=== PATIENT | female | born 1950 | race Caucasian/White ===

== ENCOUNTER 2016-11-08 14:04 | Inpatient (IN) | payer OTHER, MEDICARE ==
[~2016-11-08] VITALS: Ht 162.6 cm; Wt 84.3 kg
[2016-11-09] MEDS ORDERED: METF500T PO (08:23)
[2016-11-09] MEDS ORDERED: PRAV40TA2 PO (08:23)
[2016-11-09] MEDS ORDERED: PARO1TAB72 PO (08:23)
[2016-11-09] MEDS ORDERED: ZOLP10TA3 PO (08:23)
[2016-11-09] MEDS ORDERED: MELO-1 PO (08:23)
[2016-11-09] MEDS ORDERED: OMEP20TA PO (08:23)
--- NOTE | 2016-11-14 19:01 | MH ---
cc: WILMER ROCHA M.D. DATE OF ADMISSION: 11/15/2016 ADMISSION DIAGNOSIS Osteoarthritis of the right knee. HISTORY This patient is a 66-year-old female with significant knee pain related to osteoarthritis. The patient has longstanding treatment of her knees related to osteoarthritis. She has had Monovisc injection and cortisone injections. She has had IC ointments, [id number] medications, antiinflammatory medications and [place] as needed for pain. Her pain has become progressively worse and she is now presenting for surgical treatment. PAST MEDICAL HISTORY, SOCIAL HISTORY, FAMILY HISTORY, REVIEW OF SYSTEMS: See attached notes. PHYSICAL EXAMINATION 5'5", 182 pounds, BMI of 30.4. VITAL SIGNS: Blood pressure 120/62. HEENT: Normocephalic, atraumatic. Pupils equal, round, reactive to light and accommodation. Extraocular motion intact. NECK: Neck is supple. CHEST: Chest is clear. HEART: Regular, rate and rhythm. ABDOMEN: Soft, nontender, normoactive bowel sounds. MUSCULOSKELETAL EXAMINATION: Right knee: There is an effusion, crepitus with range of motion, pain with range of motion. Flexion limited to 120 degrees. Mild deformity. Medial and lateral joint line discomfort. IMAGING X-ray showed evidence of extensive arthritis of the right knee. IMPRESSION Osteoarthritis of the right knee. PLAN Right total knee replacement arthroplasty. CONSENT There are risks of surgery including infection, bleeding, loss of motion, continued pain, need for further surgery, neurologic and vascular injury. The patient understands these issues and wishes to press on with surgery as outlined above. MD CR Tyler/NICKI /6:27 PM /6:47 PM
[2016-11-15] MEDS ORDERED: POVIDONE IODINE 5% (ANTISEPSIS KIT) 4 APPLICATIONS EACH NARE PRN (07:00)
[2016-11-15] MEDS ORDERED: INSULIN HUMAN REGULAR 1,000 UNITS/10 ML VIAL SQ PRN (07:00)
[2016-11-15] MEDS ORDERED: VANCOMYCIN 1000 MG/NS 250 ML (for <70 kg) IV SCH ×2 (07:00)
[2016-11-15] MEDS ORDERED: CHLORHEXIDINE GLUCONATE 2 % 1 PACK (2 CLOTHS) TOPICAL PRN (07:00)
[2016-11-15] MEDS ORDERED: METOPROLOL TARTRATE 25 MG TAB PO PRN (07:00)
[2016-11-15] MEDS ORDERED: POVIDONE IODINE 7.5% SCRUB 118 ML BOTTLE TOPICAL SCH (07:00)
[2016-11-15] MEDS ORDERED: SODIUM CHLORID 0.9% 500 ML IV PRN (07:00)
[2016-11-15] MEDS ORDERED: LACTATED RINGER'S 1000 ML IV PRN (07:00)
[2016-11-15] MEDS ORDERED: ceFAZolin 2 GM PREMIX 50 ML IV SCH (07:00)
[2016-11-15] MEDS ORDERED: GENTAMICIN SULFATE 80 MG/2 ML VIAL ONE (07:01)
[2016-11-15 07:02] VITALS: BP 103/69; PULSE 62; RESP 16; TEMP 97.6; O2SAT 97
[2016-11-15] MEDS ORDERED: BUPIVACAINE HCL PF 0.5% 30 ML VIAL NERV BLOCK ONE (07:19)
[2016-11-15] MEDS ORDERED: BUPIVACAINE LIPOSOME PF 1.3% 20 ML VIAL ONE (07:20)
[2016-11-15] MEDS ORDERED: WALKER WHEELS/F1 MIS (07:44)
[2016-11-15] MEDS ORDERED: CPMMACHINE (07:45)
[2016-11-15] MEDS ORDERED: COMMODE 3-IN-11 MIS (07:45)
--- NOTE | 2016-11-15 07:47 | HHI.FF ---
Face to Face Verification Diagnosis: (1) Osteoarthritis of right knee (2) Right knee pain Physical Therapy Gait training, Safety evaluation, Transfer training, bed to chair Knee: Total knee, Protocol: Right, Full weight bearing Canvas Knee Splint: When in bed & 2 pillows btw thighs Right LE Weight Bearing: WB as tolerated Additional Instructions PT 4 days/wk for 2 weeks. WBAT RLE. TKA protocol. Walker assist. CPM twice daily as tolerated, 0-60 w goal of 100 flexion. Nursing RN Days per Week: 2 x Week(s): 1 Dressing Changes: Do not change dressing Additional Instructions Hold dressing changes unless saturated. Ok to shower if kept sealed and dry. Vitals assessment. I have seen patient Mariposa Tamez on 11/15/16. My clinical findings support the need for the requested home health care services because: Limited ability to care for self High risk of falls I certify that my clinical findings support that this patient is homebound because: Post-op weakness Unsteady gait/balance Alise Rao Nov 15, 2016 07:47
[2016-11-15] MEDS ORDERED: DEXAMETHASONE SOD PHOS 4 MG/ML VIAL ONE (08:09)
[2016-11-15] MEDS ORDERED: FAMOTIDINE 20 MG/2 ML VIAL ONE (08:09)
[2016-11-15] MEDS ORDERED: EXPAREL PERI-ARTICULAR INJECTION (TOTAL VOL. 60 ML) P-ARTICULR SCH ×2 (08:30)
[2016-11-15] MEDS ORDERED: TRANEXAMIC ACID INJ 829 MG in SODIUM CHLORIDE 0.9% INJ 100 ML IV SCH ×2 (08:30→11:30)
--- NOTE | 2016-11-15 10:52 | PD.OP ---
cc: Jose Elias Morgan MD Operative Report Date of Surgery: Nov 15, 2016 Preoperative Diagnosis: Osteoarthritis right knee Postoperative Diagnosis: Same Procedure: Right total knee replacement arthroplasty, posterior stabilized Anesthesia: Gen. Surgeon: Jose Elias Morgan Showroom Salesperson(s): ROSENDO Dinh Operation and Findings: EBL: 200 cc INDICATION: This patient presents with long-standing arthritis of the knee. Attachment record documents conservative measures. The patient now presents for surgical treatment. NOTE: Marifer Dinh PA-C was present for the entire surgical procedure as my engineer first assistant. In my medical opinion her skill and care was necessary for proper management of this patient. TOURNIQUET TIME: 64 minutes COMPANY: [employer] FEMUR: Size 3, posterior stabilized TIBIA: Size knee, fixed bearing PATELLA: 35 mm POLYETHYLENE INSERT: 13 mm PROCEDURE: This patient was brought the operating room and anesthetized in the supine position. The patient was positioned supine on the table. The tourniquet was placed about the thigh, and the leg was scrubbed with alcohol followed by Hibiclens followed by ChloraPrep and draped sterilely. A timeout was done, and antibiotics were given. After exsanguination the tourniquet was inflated to 250 mmHg. An anterior incision was made and a median parapatellar arthrotomy was performed. The patella was released laterally and subluxed allowing freehand cut of the patella which was then sized. A metal cap was placed over the exposed patellar surface for protection. A plate shear operator hole was placed in the distal femur allowing a 5 valgus cut removing 10 mm from the distal femur. Anterior posterior and chamfer cuts were made. The posterior stabilize osteotomy was made. The attention was directed to the tibia. Retractors were positioned. The external alignment guide was used allowing the lateral tibia to be used as referencing guide and cut utilizing an oscillating saw taking care to avoid any injury to the surrounding soft tissues. This was sized properly. Trial reduction showed that the insert fit nicely. The patient had range of motion extension 0 flexion 125. A medial release was not necessary. The bony surfaces prepared. On the back table 2 packets of methylmethacrylate were mixed. The components were cemented. Excess cement was removed. The tourniquet let down and hemostasis was controlled. The final plastic insert was inserted. Range of motion was the same as previously noted. A drain was brought through a separate stab incision. The arthrotomy was repaired with interrupted #1 Vicryl suture, subcutaneous tissue 2-0 Vicryl suture and skin with metallic iveth A sterile dressing was applied. Sponge counts, needle counts and instrument counts were all correct. The patient tolerated procedure well and was taken to recovery in satisfactory condition. FINDINGS: There was severe osteoarthritis especially medial compartment and retropatellar region. There was chondromalacia of the lateral compartment. A varus deformity was noted. The final solution appeared be excellent. Jose Elias Morgan. Nov 15, 2016 10:52
[2016-11-15] MEDS ORDERED: OXYC1TAB63 PO (10:54)
[2016-11-15] MEDS ORDERED: XARE10TA PO (10:54)
[2016-11-15] MEDS ORDERED: NALOXONE HCL 0.4 MG/ML AMP IV PRN (11:00)
[2016-11-15] MEDS ORDERED: MISCELLANEOUS NURSING INFORMATION XX PRN (11:00)
[2016-11-15] MEDS ORDERED: TEMAZEPAM 15 MG CAP PO PRN (11:00)
[2016-11-15] MEDS ORDERED: Post-op Orders (for Pharmacy) MISC XX ONE (11:00)
[2016-11-15] MEDS: INSULIN NovoLIN REGULAR SUPPLEMENTAL SCALE SQ SCH ×3 (11:00→20:59)
[2016-11-15] MEDS ORDERED: DEXTROSE 50% IN WATER 50 ML VIAL(D50) IV PRN (11:00)
[2016-11-15] MEDS ORDERED: SODIUM CHLORIDE 0.9% FLUSH 5 ML FLUSH IVF PRN (11:00)
[2016-11-15] MEDS ORDERED: MISCELLANEOUS PHARMACY INFORMATION XX ONE (11:00)
[2016-11-15] MEDS ORDERED: MORPHINE SULFATE 8 MG/ML INJ IM PRN (11:00)
[2016-11-15] MEDS ORDERED: GLUCAGON 1 MG/ML VIAL IM/SQ PRN (11:00)
[2016-11-15] MEDS ORDERED: oxyCODONE/ACETAMINOPHEN 5 MG/325 MG TAB PO PRN (11:00)
[2016-11-15] MEDS ORDERED: DO NOT ADM ANY ANTICOAGULANT DRUGS PRN (11:20)
[2016-11-15] MEDS ORDERED: fentaNYL CITRATE 250 MCG/5 ML AMP ONE (11:21)
[2016-11-15] MEDS ORDERED: MIDAZOLAM HCL 2 MG/2 ML VIAL ONE (11:21)
[2016-11-15] MEDS: LACTATED RINGER'S 1000 ML INJ 1,000 ML IV SCH ×2 (11:52→23:18)
[2016-11-15] MEDS: MORPHINE SULFATE 30 MG/30 ML PCA IV SCH (11:53)
[2016-11-15] MEDS ORDERED: PROPOFOL 200 MG/20 ML AMP IV ONE (12:00)
[2016-11-15] MEDS ORDERED: ONDANSETRON HCL 4 MG/2 ML VIAL IV PUSH ONE (12:00)
[2016-11-15] MEDS ORDERED: LACTATED RINGER'S 1000 ML INJ 1,000 ML IV ONE (12:00)
[2016-11-15] MEDS ORDERED: ePHEDrine/NS 25 MG/5 ML SYR IV ONE (12:00)
--- NOTE | 2016-11-15 12:26 | RADRPT ---
EXAM DATE/TIME: 11/15/2016 11:35 [facility] COMPARISON: No previous studies available for comparison. INDICATIONS : Post op right knee surgery. MEDICAL HISTORY : None. SURGICAL HISTORY : None. ENCOUNTER: Initial ACUITY: 1 day PAIN SCORE: Non-responsive. LOCATION: Right knee FINDINGS: The patient is status post right total knee replacement with prosthesis in good position. There is n o fracture or dislocation. CONCLUSION: Status post right total knee replacement with prosthesis in good position. Angel Irizarry MD on November 15, 2016 at 12:13 Board Certified Radiologist. This report was verified electronically.
[2016-11-15 12:40] VITALS: BP_SYST 137; BP_SYST 156; BP_DIAS 68; BP_DIAS 82; PULSE 69; RESP 20; TEMP 98.8; O2SAT 95
[2016-11-15] MEDS: PCA - TOTAL MG MORPHINE DELIVERED PER SHIFT SCH ×2 (14:56→22:00)
[2016-11-15 16:00] VITALS: BP 125/64; PULSE 97; RESP 20; TEMP 97.7; O2SAT 95
[2016-11-15 16:26] VITALS: O2SAT 96
[2016-11-15] MEDS: metFORMIN HCL 500 MG TAB PO SCH (18:28)
[2016-11-15 20:40] VITALS: BP 107/57; PULSE 79; RESP 16; TEMP 96.3; O2SAT 94
[2016-11-15] MEDS: MAGNESIUM HYDROXIDE SUSP 30 ML CUP PO SCH (20:56)
[2016-11-15] MEDS: SENNOSIDES 8.6 MG TAB PO SCH (20:56)
[2016-11-15] MEDS: SODIUM CHLORIDE 0.9% FLUSH 5 ML FLUSH IVF SCH (20:56)
[2016-11-15] MEDS: ZOLPIDEM TARTRATE 10 MG TAB PO PRN (22:27)
[2016-11-16 00:15] VITALS: BP 108/58; PULSE 82; RESP 16; TEMP 98.3; O2SAT 92
[2016-11-16] MEDS: MORPHINE SULFATE 30 MG/30 ML PCA IV SCH (03:51)
[2016-11-16 04:23] VITALS: BP 100/57; PULSE 81; RESP 16; TEMP 98.9; O2SAT 92
[2016-11-16] MEDS: PCA - TOTAL MG MORPHINE DELIVERED PER SHIFT SCH ×2 (05:48→08:00)
[2016-11-16] MEDS: INSULIN NovoLIN REGULAR SUPPLEMENTAL SCALE SQ SCH ×4 (05:48→20:03)
[2016-11-16 07:25] LABS: HEMATOCRIT 29.9 % (35.0-46.0); REVIEW FLAG FINAL
[2016-11-16 07:27] VITALS: BP 108/57; PULSE 70; RESP 17; TEMP 98.5; O2SAT 91
--- NOTE | 2016-11-16 07:48 | HHI.DCPOC ---
Discharge Care Plan Diagnosis: (1) Right knee pain (2) Osteoarthritis of right knee Your Health Problems Are: Incision/Drains Swelling Goals to Promote Your Health * To prevent worsening of your condition and complications * To maintain your health at the optimal level Directions to Meet Your Goals Take your medications as prescribed Follow your dietary instruction Follow activity as directed Keep your appointments as scheduled Take your immunizations and boosters as scheduled If your symptoms worsen call your PCP, if no PCP go to Urgent Care Center or Emergency Room Smoking is Dangerous to Your Health. Avoid second hand smoke Call the 24-hour hour crisis hotline for domestic abuse at Alise Rao Nov 16, 2016 07:48
--- NOTE | 2016-11-16 07:49 | HHI.DS ---
Discharge Summary Admission Date Nov 15, 2016 at 06:27 Discharge Date: Nov 17, 2016 Admitting Diagnosis see below Diagnosis: (1) Right knee pain Diagnosis: Principal (2) Osteoarthritis of right knee Diagnosis: Principal Procedures Right total knee arthroplasty Brief History This is a 66 year old female patient CBC/BMP: 11/16/16 0629 Significant Findings Laboratory Tests Test 11/16/16 06:29 Hemoglobin 9.9 GM/DL (11.6-15.3) Hematocrit 29.9 % (35.0-46.0) Pt Condition on Discharge: Stable Discharge Disposition: Disch w/ Home Health Serv Discharge Instructions Diet Instructions: Diabetic Diet, High Fiber Diet Activities You Can Perform: Weight Bearing as [place] Activities to Avoid: Strenuous Activity Additional Activity Instruc.: TKA protocol New Medications: Commode 3-in-1 (Commode 3-in-1) 1 Mis Mis 1 EA .ROUTE DIRECTED #1 Ref 0 EA CPM-Continuous Passive Motion Machine (CPM-Continuous Passive Motion Machine) 1 Ea Device 1 EA .ROUTE DIRECTED #1 Ref 0 EA Walker with Front Wheels (Walker with Front Wheels) 1 Mis Mis 1 EA .ROUTE DIRECTED #1 Ref 0 EA Oxycodone-Acetaminophen (Oxycodone-Acetaminophen) 5-325 mg Tab 2 TAB PO Q4H PRN PAIN SCALE 5 TO 10 #50 TAB Rivaroxaban (Xarelto) 10 Mg Tab 10 MG PO Q24H Prevent Blood Clot #15 TAB Continued Medications: Metformin (Metformin) 500 Mg Tab 500 MG PO BIDPC With meals Blood Sugar Management #60 Ref 0 TAB Omeprazole (Omeprazole) 20 Mg Tab 20 MG PO DAILY #30 Ref 0 TAB Paroxetine (Paroxetine) 20 Mg Tab 20 MG PO DAILY #30 Ref 0 TAB Pravastatin (Pravastatin) 40 Mg Tab 40 MG PO DAILY Cholesterol Management #30 Ref 0 TAB Zolpidem (Zolpidem) 10 Mg Tab 10 MG PO HS PRN INSOMNIA Ref 0 TAB Discontinued Medications: Meloxicam (Meloxicam) 15 Mg Tab 15 MG PO DAILY Arthritis Pain #30 Ref 0 TAB Alise Rao Nov 16, 2016 07:49
--- NOTE | 2016-11-16 07:53 | PD.ORT.PN ---
Subjective Subjective Remarks Painful moderate controlled. Was able to get some rest last night. No new leg pain. Some aching behind the knee. Appetite ok this morning - trying to order breakfast. No new CP or SOB. Prefers d/c home a [facility]. Objective Vitals Vital Signs Date Time Temp Pulse Resp B/P Pulse Ox O2 Delivery O2 Flow Rate FiO2 11/16/16 07:27 98.5 70 17 108/57 91 11/16/16 05:48 16 11/16/16 04:23 98.9 81 16 100/57 92 11/16/16 03:51 20 11/16/16 00:15 98.3 82 16 108/58 92 11/15/16 22:00 20 11/15/16 20:40 96.3 79 16 107/57 94 11/15/16 16:26 96 21 11/15/16 16:00 97.7 97 20 125/64 95 11/15/16 14:56 16 11/15/16 12:40 98.8 69 20 137/68 95 156/82 11/15/16 12:22 18 11/15/16 11:59 95 16 127/61 92 Nasal Cannula 2 11/15/16 11:53 16 11/15/16 11:45 90 16 118/60 92 Nasal Cannula 2 11/15/16 11:30 100 16 125/56 95 Nasal Cannula 2 11/15/16 11:15 99 16 122/59 92 Nasal Cannula 2 11/15/16 11:11 96.9 104 16 136/63 96 Nasal Cannula 2 I/O 11/15/16 11/15/16 11/15/16 11/16/16 11/16/16 11/16/16 07:00 15:00 23:00 07:00 15:00 23:00 Intake Total 1200 ml 806 ml 1854 ml Output Total 975 ml 2050 ml 2165 ml Balance 225 ml -1244 ml -311 ml Intake Oral 0 ml 480 ml 480 ml IV Total 100 ml 326 ml 1374 ml Other 1100 ml Output Urine Total 175 ml 2050 ml 1950 ml Drainage Total 100 ml 215 ml Estimated Blood Loss 100 ml Other 600 ml # Bowel Movements 0 0 Result Diagram: 11/16/16 0629 Imaging Last 24 hours Impressions Knee X-Ray 11/15/16 1048 Signed Impressions: Service Date/Time: October 11:35 - CONCLUSION: Status post right total knee replacement with prosthesis in good position. Angel Irizarry MD Procedures Right total knee arthroplasty Objective Remarks Sitting up in bed, NAD VSS RLE Right knee dressing c/d/i, mild swelling, no erythema thigh and calf supple, neg homans +motor at, +sens, +nvi Assessment & Plan Ortho Post Op Day #: 1 Problem List: (1) Right knee pain (2) Osteoarthritis of right knee Assessment and Plan pod#1 s/p R TKA Pain controlled. D/C BUILD ENGINEER today - change to po pain meds Xarelto 10mg qd Hold dressing changes unless saturated PT - WBAT RLE. TKA protocol. CPM bid as tolerated. D/C planning, HHC tomorrow (saturday) F2F and DME written. F/U in 2 weeks as scheduled. Alise Rao Nov 16, 2016 07:53
[2016-11-16] MEDS: SODIUM CHLORIDE 0.9% FLUSH 5 ML FLUSH IVF SCH ×2 (09:03→20:04)
[2016-11-16] MEDS: metFORMIN HCL 500 MG TAB PO SCH ×2 (09:04→18:10)
[2016-11-16] MEDS: PRAVASTATIN SOD 40 MG TAB PO SCH (09:04)
[2016-11-16] MEDS: RIVAROXABAN 10 MG TAB PO SCH (09:04)
[2016-11-16] MEDS: PARoxetine HCL 20 MG TAB PO SCH (09:04)
[2016-11-16] MEDS: PANTOPRAZOLE SOD 20 MG DELAYED RELEASE TAB PO SCH (09:05)
[2016-11-16] MEDS: MAGNESIUM HYDROXIDE SUSP 30 ML CUP PO SCH ×2 (09:05→19:57)
[2016-11-16] MEDS: oxyCODONE/ACETAMINOPHEN 5 MG/325 MG TAB PO PRN ×2 (11:15→15:26)
[2016-11-16 11:39] VITALS: BP 140/70; PULSE 66; RESP 18; TEMP 98.3; O2SAT 95
[2016-11-16] MEDS: LACTATED RINGER'S 1000 ML INJ 1,000 ML IV SCH ×2 (11:48→20:04)
[2016-11-16 15:47] VITALS: BP 139/67; PULSE 74; RESP 18; TEMP 96.3; O2SAT 94
[2016-11-16] MEDS: SENNOSIDES 8.6 MG TAB PO SCH (19:58)
[2016-11-16 20:25] VITALS: BP 105/55; PULSE 72; RESP 17; TEMP 99.3; O2SAT 94
[2016-11-16] MEDS: ZOLPIDEM TARTRATE 10 MG TAB PO PRN (22:08)
[2016-11-17] MEDS: oxyCODONE/ACETAMINOPHEN 5 MG/325 MG TAB PO PRN ×3 (00:13→14:08)
[2016-11-17 00:21] VITALS: BP 115/53; PULSE 86; RESP 17; TEMP 99.8; O2SAT 93
[2016-11-17 04:25] VITALS: TEMP 98.9
[2016-11-17] MEDS: INSULIN NovoLIN REGULAR SUPPLEMENTAL SCALE SQ SCH (06:05)
[2016-11-17 08:00] VITALS: BP 135/77; PULSE 74; RESP 16; TEMP 96.3; O2SAT 95
[2016-11-17] MEDS: SODIUM CHLORIDE 0.9% FLUSH 5 ML FLUSH IVF SCH (09:00)
[2016-11-17] MEDS: PARoxetine HCL 20 MG TAB PO SCH (09:34)
[2016-11-17] MEDS: metFORMIN HCL 500 MG TAB PO SCH (09:34)
[2016-11-17] MEDS: PRAVASTATIN SOD 40 MG TAB PO SCH (09:34)
[2016-11-17] MEDS: PANTOPRAZOLE SOD 20 MG DELAYED RELEASE TAB PO SCH (09:34)
[2016-11-17] MEDS: RIVAROXABAN 10 MG TAB PO SCH (09:34)
[2016-11-17] MEDS: MAGNESIUM HYDROXIDE SUSP 30 ML CUP PO SCH (09:37)
--- NOTE | 2016-11-17 13:19 | PD.ORT.PN ---
Subjective Subjective Remarks Patient comfortable. Pain controlled. OOB sitting on recliner. Family at bedside. Objective Vitals Vital Signs Date Time Temp Pulse Resp B/P Pulse Ox O2 Delivery O2 Flow Rate FiO2 11/17/16 08:00 96.3 74 16 135/77 95 11/17/16 04:25 98.9 11/17/16 00:21 99.8 86 17 115/53 93 11/16/16 20:25 99.3 72 17 105/55 94 11/16/16 15:47 96.3 74 18 139/67 94 I/O 11/16/16 11/16/16 11/16/16 11/17/16 11/17/16 11/17/16 07:00 15:00 23:00 07:00 15:00 23:00 Intake Total 1854 ml 1048 ml 240 ml 240 ml Output Total 2165 ml 150 ml 35 ml 4 ml Balance -311 ml 898 ml 205 ml 236 ml Intake Oral 480 ml 500 ml 240 ml 240 ml IV Total 1374 ml 548 ml Output Urine Total 1950 ml 4 ml Drainage Total 215 ml 150 ml 35 ml # Voids 3 1 # Bowel Movements 0 0 0 1 Result Diagram: 11/16/16 0629 Imaging Last 24 hours Impressions Knee X-Ray 11/15/16 1048 Signed Impressions: Service Date/Time: October 11:35 - CONCLUSION: Status post right total knee replacement with prosthesis in good position. Angel Irizarry MD Procedures Right total knee arthroplasty Objective Remarks Sitting up in bed, NAD VSS RLE Right knee dressing c/d/i, mild swelling, no erythema thigh and calf supple, neg homans +motor at, +sens, +nvi Assessment & Plan Problem List: (1) Right knee pain (2) Osteoarthritis of right knee Assessment and Plan pod#2 s/p R TKA Pain controlled. PO pain meds Xarelto 10mg qd Hold dressing changes unless saturated PT - WBAT RLE. TKA protocol. CPM bid as tolerated. Orthopedically stable for discharge D/C planning, HHC tomorrow (saturday) F2F and DME written. F/U in [address] Ramirez spoke with patient. David Pressley Nov 17, 2016 13:19
== END 2016-11-17 14:42 | disposition home health service (06) | DRG 470 ==
LOC: HSDI 11-15 06:27 → N06B 11-15 12:17
PROVIDERS: ADMIT Orthopaedic Surgery Orthopaedic Surgery of the Spine; ATTEND Orthopaedic Surgery Orthopaedic Surgery of the Spine
PROC: 0SRC0J9 Replacement of Right Knee Joint with Synthetic Substitute, Cemented, Open Approach (ICD-10-PCS; principal; 2016-11-15 08:17)
DX: M17.11 Unilateral primary osteoarthritis, right knee (principal); E78.5 Hyperlipidemia, unspecified; M94.261 Chondromalacia, right knee; K21.9 Gastro-esophageal reflux disease without esophagitis; F32.9 Major depressive disorder, single episode, unspecified; Z87.891 Personal history of nicotine dependence
CPT/HCPCS: 73560; 82948; 85014; 85018; 86850; 86900; 86901; 86920; 94150; C1776; C9290; J0690; J1100; J1580; J2250; J2270; J2405; J3010; J3370; J7050; J7120; L1830

== ENCOUNTER → 2016-11-09 | Outpatient (CLI) | payer OTHER ==
[~2016-11-09] MED LIST: CALCCHW3 PO; COMMODE 3-IN-11 MIS; CPMMACHINE; LORTA5 PO; MELO-1 PO; METF500T PO; MULT1CHW33; OMEP20TA PO; OMEP20TA39 PO; OXYC1TAB63 PO; PARO1TAB72 PO; PAXI20TA26 PO; PRAV40TA2 PO; PRAV80 PO; RIVA15 PO; WALKER WHEELS/F1 MIS; XARE10TA PO; ZOLP10TA3 PO
== END ==
LOC: CPRE 07:53
PROVIDERS: ATTEND Orthopaedic Surgery Orthopaedic Surgery of the Spine
DX: M17.11 Unilateral primary osteoarthritis, right knee (principal)

== ENCOUNTER 2017-06-25 06:55 | Observation (INO) | payer MEDICAID, MEDICARE, OTHER ==
[~2017-06-25] VITALS: Ht 162.6 cm; Wt 76.6 kg
[~2017-06-25 06:55] MED LIST changes: -CALCCHW3 PO; -COMMODE 3-IN-11 MIS; -CPMMACHINE; +LEVO50TA4 PO; -LORTA5 PO; -MELO-1 PO; -METF500T PO; -MULT1CHW33; -OMEP20TA PO; -OMEP20TA39 PO; +OMEP20TA93 PO; -OXYC1TAB63 PO; -PARO1TAB72 PO; +PARO20TA3 PO; -PAXI20TA26 PO; -PRAV80 PO; -RIVA15 PO; -WALKER WHEELS/F1 MIS; -XARE10TA PO
[2017-06-25] MEDS ORDERED: POVIDONE IODINE 5% (ANTISEPSIS KIT) 4 APPLICATIONS EACH NARE PRN (08:15)
[2017-06-25] MEDS ORDERED: CHLORHEXIDINE GLUCONATE 4% SOLN 120 ML BTL TOPICAL SCH (08:15)
[2017-06-25] MEDS ORDERED: TRANEXAMIC ACID IV SCH (08:15)
[2017-06-25] MEDS ORDERED: VANCOMYCIN 1 GM/200 ML PREMIX IV SCH (08:15)
[2017-06-25] MEDS ORDERED: SODIUM CHLORID 0.9% 500 ML IV PRN (08:15)
[2017-06-25] MEDS ORDERED: METOPROLOL TARTRATE 25 MG TAB PO PRN (08:15)
[2017-06-25] MEDS ORDERED: LACTATED RINGER'S 1000 ML IV PRN (08:15)
[2017-06-25] MEDS ORDERED: ceFAZolin 2 GM PREMIX 50 ML IV SCH (08:15)
[2017-06-25] MEDS ORDERED: INSULIN HUMAN REGULAR 1,000 UNITS/10 ML VIAL SQ PRN (08:15)
[2017-06-25] MEDS ORDERED: SODIUM CHLORIDE 0.9% IV SCH (08:15)
[2017-06-25] MEDS ORDERED: CHLORHEXIDINE GLUCONATE 2 % 1 PACK (2 CLOTHS) TOPICAL PRN (08:15)
[2017-06-25] MEDS ORDERED: EXPAREL PERI-ARTICULAR INJECTION (TOTAL VOL. 60 ML) P-ARTICULR SCH ×2 (08:15)
[2017-06-25] MEDS ORDERED: MIDAZOLAM HCL 2 MG/2 ML VIAL ONE (09:27)
[2017-06-25] MEDS ORDERED: FAMOTIDINE 20 MG/2 ML VIAL ONE (09:27)
[2017-06-25] MEDS ORDERED: GENTAMICIN SULFATE 80 MG/2 ML VIAL ONE (09:39)
[2017-06-25] MEDS ORDERED: FAMOTIDINE 20 MG/2 ML VIAL IV SCH (10:00)
[2017-06-25] MEDS ORDERED: MIDAZOLAM HCL 2 MG/2 ML VIAL IV SCH (10:00)
[2017-06-25] MEDS ORDERED: ACETAMINOPHEN 1000 MG/100 ML 100 ML IV ONE (10:04)
[2017-06-25] MEDS ORDERED: fentaNYL CITRATE 250 MCG/5 ML AMP ONE (10:04)
[2017-06-25] MEDS ORDERED: BUPIVACAINE HCL PF 0.5% 30 ML VIAL ONE (10:10)
[2017-06-25] MEDS ORDERED: DEXAMETHASONE SOD PHOS 4 MG/ML VIAL ONE (10:11)
[2017-06-25] MEDS ORDERED: PROPOFOL 200 MG/20 ML AMP IV ONE (12:00)
[2017-06-25] MEDS ORDERED: ePHEDrine/NS 25 MG/5 ML SYRINGE IV ONE (12:00)
[2017-06-25] MEDS ORDERED: LIDOCAINE HCL 1% PF 5 ML SYRINGE OTHER ONE (12:00)
[2017-06-25] MEDS ORDERED: LABETALOL HCL 100 MG/20 ML VIAL IV ONE (12:00)
[2017-06-25] MEDS ORDERED: DEXAMETHASONE SOD PHOS 4 MG/ML VIAL IV ONE (12:00)
[2017-06-25] MEDS ORDERED: ONDANSETRON HCL 4 MG/2 ML VIAL IV ONE (12:00)
[2017-06-25] MEDS ORDERED: PHENYLEPH/NS 1000 MCG/10 ML SYR IV ONE (12:00)
[2017-06-25] MEDS ORDERED: BUPIVACAINE/EPINEPHRINE 0.25% 50 ML VIAL ONE (12:06)
[2017-06-25] MEDS ORDERED: HYDROmorphone HCL PF 2 MG/ML VIAL ONE (12:21)
--- NOTE | 2017-06-25 13:11 | PD.OP ---
cc: Jose Elias Morgan MD Operative Report Date of Surgery: Jun 25, 2017 Preoperative Diagnosis: Osteoarthritis left knee Postoperative Diagnosis: Same Procedure: Left total knee replacement arthroplasty, posterior stabilized anterior exposure Anesthesia: Gen. with regional for pain control Surgeon: Jose Elias Morgan Milking Worker(s): ROSENDO Dinh Operation and Findings: EBL: 50 mL INDICATION: This patient presents with long-standing arthritis of the knee. Attachment record documents conservative measures. The patient now presents for surgical treatment. NOTE: Marifer Dinh PA-C was present for the entire surgical procedure as my appeals assistant. In my medical opinion her skill and care was necessary for proper management of this patient. TOURNIQUET TIME: 56 minutes COMPANY: [employer] FEMUR: Size 3, posterior stabilized TIBIA: Size 3, fixed bearing PATELLA: 35 mm POLYETHYLENE INSERT: 11 mm PROCEDURE: This patient was brought the operating room and anesthetized in the supine position. The patient was positioned supine on the table. The tourniquet was placed about the thigh, and the leg was scrubbed with alcohol followed by Hibiclens followed by ChloraPrep and draped sterilely. A timeout was done, and antibiotics were given. After exsanguination the tourniquet was inflated to 250 mmHg. An anterior incision was made and a median parapatellar arthrotomy was performed. The patella was released laterally and subluxed allowing freehand cut of the patella which was then sized. A metal cap was placed over the exposed patellar surface for protection. A automatic pilot mechanic hole was placed in the distal femur allowing a 5 valgus cut removing and mm from the distal femur. Anterior posterior and chamfer cuts were made. The posterior stabilize osteotomy was made. The attention was directed to the tibia. Retractors were positioned. The external alignment guide was used allowing the lateral tibia to be used as referencing guide and cut utilizing an oscillating saw taking care to avoid any injury to the surrounding soft tissues. This was sized properly. Trial reduction showed that the insert fit nicely. The patient had range of motion extension 0 flexion 125. A medial release was not necessary. The bony surfaces prepared. On the back table 2 packets of methylmethacrylate were mixed. The components were cemented. Excess cement was removed. The tourniquet let down and hemostasis was controlled. The final plastic insert was inserted. Range of motion was the same as previously noted. A drain was brought through a separate stab incision. The arthrotomy was repaired with interrupted #1 Vicryl suture, subcutaneous tissue 2-0 Vicryl suture and skin with metallic iveth A sterile dressing was applied. Sponge counts, needle counts and instrument counts were all correct. The patient tolerated procedure well and was taken to recovery in satisfactory condition. FINDINGS: There was severe osteoarthritis of the knee. It was worse than what appeared to be based on x-rays alone. The final balancing was excellent. There was no complication was appreciated. Jose Elias Morgan MD Jun 25, 2017 13:11
[2017-06-25] MEDS ORDERED: OXYC1TAB63 PO (13:13)
[2017-06-25] MEDS ORDERED: ECASA81 PO (13:13)
[2017-06-25] MEDS ORDERED: DO NOT ADM ANY ANTICOAGULANT DRUGS PRN (13:35)
[2017-06-25] MEDS ORDERED: *morphine SULFATE 4 MG/ML PERIprocedure ONLY ONE ×3 (13:46→14:40)
[2017-06-25] MEDS: LACTATED RINGER'S 1000 ML INJ 1,000 ML IV SCH ×2 (14:03→21:02)
--- NOTE | 2017-06-25 14:39 | RADRPT ---
EXAM DATE/TIME: 06/25/2017 14:09 [facility] COMPARISON: No previous studies available for comparison. INDICATIONS : Post op left knee arthroplasty. MEDICAL HISTORY : None. SURGICAL HISTORY : Total knee replacement, right. ENCOUNTER: Initial ACUITY: 1 day PAIN SCORE: 4/10 LOCATION: Left knee FINDINGS: The patient is status post left total knee replacement with prosthesis in good position. No fracture or dislocation is noted. CONCLUSION: 1. Left total knee replacement with prosthesis in good position. 2. No fracture or dislocation. Angel Irizarry MD on June 25, 2017 at 14:37 Board Certified Radiologist. This report was verified electronically.
[2017-06-25] MEDS ORDERED: MORPHINE SULFATE 8 MG/ML INJ IM PRN (15:15)
[2017-06-25] MEDS ORDERED: NALOXONE HCL 0.4 MG/ML AMP IV PUSH PRN (15:15)
[2017-06-25] MEDS ORDERED: ASPIRIN EC 81 MG TABEC PO ONE (15:15)
[2017-06-25] MEDS ORDERED: oxyCODONE/ACETAMINOPHEN 5 MG/325 MG TAB PO PRN (15:15)
[2017-06-25] MEDS ORDERED: Post-op Orders (for Pharmacy) XX ONE (16:00)
[2017-06-25] MEDS ORDERED: MISCELLANEOUS PHARMACY INFORMATION XX ONE (16:00)
[2017-06-25] MEDS ORDERED: MISCELLANEOUS NURSING INFORMATION XX PRN (16:00)
[2017-06-25] MEDS ORDERED: *RESP: ALBUTEROL 2.5 MG/3 ML NEB (PRN) PERIprocedural Use ONLY NEB ONE (16:40)
[2017-06-25] MEDS: oxyCODONE/ACETAMINOPHEN 5 MG/325 MG TAB PO PRN (17:58)
[2017-06-25 18:00] VITALS: BP 142/76; PULSE 92; RESP 17; TEMP 96.3; O2SAT 93
[2017-06-25 19:43] VITALS: BP 124/72; PULSE 85; RESP 18; TEMP 96.8; O2SAT 95
[2017-06-25] MEDS: SENNOSIDES 8.6 MG TAB PO SCH (21:01)
[2017-06-25] MEDS: MAGNESIUM HYDROXIDE SUSP 30 ML CUP PO SCH (21:01)
[2017-06-25] MEDS: ASPIRIN EC 81 MG TABEC PO SCH (21:02)
[2017-06-25] MEDS: PANTOPRAZOLE SOD 20 MG DELAYED RELEASE TAB PO SCH (21:02)
[2017-06-25] MEDS: ZOLPIDEM TARTRATE 10 MG TAB PO PRN (21:04)
[2017-06-25 23:56] VITALS: BP 93/51; PULSE 94; RESP 17; TEMP 98.2; O2SAT 98
[2017-06-26 04:27] VITALS: BP 98/54; PULSE 83; RESP 17; TEMP 98.9; O2SAT 97
[2017-06-26 04:50] LABS: HEMATOCRIT 32.6 % (35.0-46.0); HEMOGLOBIN 11.2 GM/DL (11.6-15.3)
[2017-06-26] MEDS: oxyCODONE/ACETAMINOPHEN 5 MG/325 MG TAB PO PRN ×5 (05:25→22:17)
[2017-06-26] MEDS: LEVOTHYROXINE SODIUM 50 MCG TAB PO SCH (05:26)
[2017-06-26 08:00] VITALS: BP 110/63; PULSE 79; RESP 16; TEMP 98.6; O2SAT 92
[2017-06-26] MEDS: PRAVASTATIN SOD 40 MG TAB PO SCH (09:03)
[2017-06-26] MEDS: PARoxetine HCL 20 MG TAB PO SCH (09:03)
[2017-06-26] MEDS: ASPIRIN EC 81 MG TABEC PO SCH ×2 (09:03→22:16)
[2017-06-26] MEDS: MAGNESIUM HYDROXIDE SUSP 30 ML CUP PO SCH ×2 (09:03→22:16)
[2017-06-26] MEDS: PANTOPRAZOLE SOD 20 MG DELAYED RELEASE TAB PO SCH ×2 (09:03→22:16)
[2017-06-26] MEDS ORDERED: WALKER WHEELS/F1 MIS (10:45)
[2017-06-26] MEDS ORDERED: CPMMACHINE (10:46)
[2017-06-26] MEDS ORDERED: COMMODE 3-IN-11 MIS (10:46)
--- NOTE | 2017-06-26 10:47 | HHI.DCPOC ---
Discharge Care Plan Diagnosis: (1) Osteoarthritis of left knee Your Health Problems Are: Difficulty with ADL Incision/Drains Swelling Goals to Promote Your Health * To prevent worsening of your condition and complications * To maintain your health at the optimal level Directions to Meet Your Goals Take your medications as prescribed Follow your dietary instruction Follow activity as directed Keep your appointments as scheduled Take your immunizations and boosters as scheduled If your symptoms worsen call your PCP, if no PCP go to Urgent Care Center or Emergency Room Smoking is Dangerous to Your Health. Avoid second hand smoke Call the 24-hour hour crisis hotline for domestic abuse at Alise Rao Jun 26, 2017 10:47
--- NOTE | 2017-06-26 12:40 | HHI.FF ---
Face to Face Verification Diagnosis: (1) Osteoarthritis of left knee Physical Therapy Gait training, Safety evaluation, Transfer training, bed to chair Knee: Total knee, Protocol: Left, Gait training, Full weight bearing Canvas Knee Splint: When in bed & 2 pillows btw thighs Left LE Weight Bearing: WB as tolerated Additional Instructions PT 4 days/wk for 2 weeks. WBAT LLE. TKA protocol. CPM twice daily as tolerated, 0-60 with goal 100 flexion. Nursing RN Days per Week: 2 x Week(s): 1 Dressing Changes: Do not change dressing Additional Instructions Hold dressing changes unless saturated/erythema. Vitals assessment. I have seen patient Mariposa Tamez on 06/26/17. My clinical findings support the need for the requested home health care services because: Limited ability to care for self High risk of falls I certify that my clinical findings support that this patient is homebound because: Post-op weakness Unsteady gait/balance Alise Rao Jun 26, 2017 12:40
--- NOTE | 2017-06-26 12:44 | PD.ORT.PN ---
Subjective Subjective Remarks Left knee pain moderately controlled. No new radiating pain. Some aching and throbbing. No new CP or SOB. Questions about surgery. She prefers home health . Objective Vitals Vital Signs Date Time Temp Pulse Resp B/P (MAP) Pulse Ox O2 Delivery O2 Flow Rate FiO2 06/26/17 12:30 18 06/26/17 10:20 18 06/26/17 08:00 98.6 79 16 110/63 (79) 92 06/26/17 04:27 98.9 83 17 98/54 (69) 97 06/25/17 23:56 98.2 94 17 93/51 (65) 98 06/25/17 19:43 96.8 85 18 124/72 (89) 95 06/25/17 18:00 96.3 92 17 142/76 (98) 93 06/25/17 17:00 98.1 97 14 123/56 (78) 95 Nasal Cannula 2 06/25/17 16:37 101 26 140/65 (90) 97 Nasal Cannula 2 06/25/17 16:00 103 22 148/77 (100) 97 Nasal Cannula 2 06/25/17 15:00 102 21 133/68 (89) 98 Nasal Cannula 2 06/25/17 14:30 102 20 142/77 (98) 98 Nasal Cannula 2 06/25/17 14:15 101 20 143/66 (91) 97 Nasal Cannula 2 06/25/17 14:00 97 15 153/78 (103) 96 Nasal Cannula 2 06/25/17 13:45 94 13 162/79 (106) 94 Nasal Cannula 3 06/25/17 13:33 97.6 94 14 134/72 (92) 94 Nasal Cannula 3 I/O 06/25/17 06/25/17 06/25/17 06/26/17 06/26/17 06/26/17 07:00 15:00 23:00 07:00 15:00 23:00 Intake Total 1300 ml 1067 ml 1333 ml Output Total 50 ml Balance 1250 ml 1067 ml 1333 ml Intake Oral 840 ml 360 ml IV Total 1300 ml 227 ml 973 ml Output Estimated Blood Loss 50 ml # Voids 4 2 # Bowel Movements 0 0 Result Diagram: 06/26/17 0405 Imaging Last 24 hours Impressions Knee X-Ray 06/25/17 1307 Signed Impressions: Service Date/Time: Sunday, June 25, 2017 14:09 - CONCLUSION: 1. Left total knee replacement with prosthesis in good position. 2. No fracture or dislocation. Angel Irizarry MD Objective Remarks Sitting up in bed at bedside NAD VSS LLE Dressing c/d/i, no obvious drainage, moderate swelling +motor at, +sens, +nvi Neg homans distal Assessment & Plan Ortho Post Op Day #: 1 Problem List: Assessment and Plan pod#1 L TKA Ortho stable. Pain moderately controlled. D/C left knee drain. Ok to change drain site only. Hold incision dressing changes unless saturated. Oxycodone for pain. ASA 81mg for dvt prophylaxis. PT - WBAT LLE. TKA protocol. Ice to left knee. IS encouraged. D/C planning, C today or tomorrow. F2F written. Alise Rao Jun 26, 2017 12:44
--- NOTE | 2017-06-26 12:46 | HHI.DS ---
Alise Rao 06/26/17 1246: Discharge Summary Admission Date Jun 25, 2017 at 13:08 Discharge Date: Jun 27, 2017 Admitting Diagnosis see below Diagnosis: (1) Osteoarthritis of left knee Diagnosis: Principal ICD Codes: M17.12 - Unilateral primary osteoarthritis, left knee Procedures Left total knee arthroplasty Brief History This is a 66 year old female patient with bilateral knee pain for well over 5 years. She sought out treatment for quite some time with Dr. Crispin Lomeli. She treated conservatively with ice, heat, and ointments. She had multiple intra-articular cortisone injections. She had a least one injection of monovisc. She was given a prescription for [place] for her worst pain. Though she was able to get temporary relief her function continued to decline. Updated xray imaging showed substantial advanced arthritis of her left knee. Surgical treatment was recommended in the form of left total knee arthroplasty. She agreed to press forward and now presents for the above. CBC/BMP: 06/26/17 0405 Significant Findings Laboratory Tests Test 06/26/17 04:05 Hemoglobin 11.2 GM/DL (11.6-15.3) Hematocrit 32.6 % (35.0-46.0) PE at Discharge Sitting up in bed at bedside NAD VSS LLE Dressing c/d/i, no obvious drainage, moderate swelling +motor at, +sens, +nvi Neg homans distal Hospital Course Surgical treatment was performed on the day of admission without complication. She recovered well in PACU and was transferred to the orthopaedic floor. Pain was controlled with IV and oral medications. DVT prophylaxis was initiated with ASA 81mg twice daily. She was compliant with physical therapy and all total knee precautions including use of her CPM. After 2 days she was found to be stable and discharged home with home health care. She was educated to continue home therapy, to ice the operative site daily, and to pursue a high fiber diet. She was given prescriptions for Percocet 5mg and ASA 81mg. Pt Condition on Discharge: Stable Discharge Disposition: Disch w/ Home Health Serv Discharge Instructions Diet Instructions: As Tolerated, No Restrictions, High Fiber Diet Activities You Can Perform: Weight Bearing as [place] Activities to Avoid: Strenuous Activity Additional Activity Instruc.: TKA protocol New Medications: Commode 3-in-1 (Commode 3-in-1) 1 Mis Mis EA .XX DIRECTED, #1 0 Refills CPM-Continuous Passive Motion Machine (CPM-Continuous Passive Motion Machine) 1 Ea Device EA .XX DIRECTED, #1 0 Refills Walker with Front Wheels (Walker with Front Wheels) 1 Mis Mis EA .XX DIRECTED, #[address] (Aspirin DR) 81 Mg Tabdr 81 MG PO BID for Prevent Blood Clot, #60 TAB Oxycodone HCl/Acetaminophen (Oxycodone-Acetaminophen 5-325) 5 Mg-325 Mg Tablet 1 TAB PO Q4H PRN for Pain, #50 TAB Continued Medications: Levothyroxine (Levothyroxine) 50 Mcg Tab 50 MCG PO DAILY for Thyroid, #30 TAB 0 Refills Omeprazole (Omeprazole) 20 Mg Tab 20 MG PO BID, #30 TAB 0 Refills Paroxetine (Paroxetine) 20 Mg Tab 20 MG PO DAILY, #30 TAB 0 Refills Pravastatin (Pravastatin) 40 Mg Tab 40 MG PO DAILY for Cholesterol Management, #30 TAB 0 Refills Zolpidem (Zolpidem) 10 Mg Tab 10 MG PO HS PRN for INSOMNIA, TAB 0 Refills Jose Elias Morgan MD 06/27/17 0921: Discharge Summary Discharge Date: Jun 27, 2017 Diagnosis: CBC/BMP: 06/26/17 0405 Pt Condition on Discharge: Good Discharge Disposition: Discharge Home Discharge Instructions New Medications: Commode 3-in-1 (Commode 3-in-1) 1 Mis Mis EA .XX DIRECTED, #1 0 Refills CPM-Continuous Passive Motion Machine (CPM-Continuous Passive Motion Machine) 1 Ea Device EA .XX DIRECTED, #1 0 Refills Walker with Front Wheels (Walker with Front Wheels) 1 Mis Mis EA .XX DIRECTED, #[address] (Aspirin DR) 81 Mg Tabdr 81 MG PO BID for Prevent Blood Clot, #60 TAB Oxycodone HCl/Acetaminophen (Oxycodone-Acetaminophen 5-325) 5 Mg-325 Mg Tablet 1 TAB PO Q4H PRN for Pain, #50 TAB Continued Medications: Levothyroxine (Levothyroxine) 50 Mcg Tab 50 MCG PO DAILY for Thyroid, #30 TAB 0 Refills Omeprazole (Omeprazole) 20 Mg Tab 20 MG PO BID, #30 TAB 0 Refills Paroxetine (Paroxetine) 20 Mg Tab 20 MG PO DAILY, #30 TAB 0 Refills Pravastatin (Pravastatin) 40 Mg Tab 40 MG PO DAILY for Cholesterol Management, #30 TAB 0 Refills Zolpidem (Zolpidem) 10 Mg Tab 10 MG PO HS PRN for INSOMNIA, TAB 0 Refills Alise Rao Jun 26, 2017 12:46 Jose Elias Morgan MD Jun 27, 2017 09:21
[2017-06-26 16:00] VITALS: BP 112/62; PULSE 75; RESP 16; TEMP 98; O2SAT 95
[2017-06-26] MEDS: LACTATED RINGER'S 1000 ML INJ 1,000 ML IV SCH (16:15)
[2017-06-26 19:27] VITALS: BP 116/64; PULSE 76; RESP 17; TEMP 98; O2SAT 98
[2017-06-26] MEDS: SENNOSIDES 8.6 MG TAB PO SCH (22:17)
[2017-06-26] MEDS: ZOLPIDEM TARTRATE 10 MG TAB PO PRN (22:17)
[2017-06-26 23:34] VITALS: BP 123/67; PULSE 79; RESP 18; TEMP 99.4; O2SAT 94
[2017-06-27] MEDS: LACTATED RINGER'S 1000 ML INJ 1,000 ML IV SCH (04:45)
[2017-06-27] MEDS: LEVOTHYROXINE SODIUM 50 MCG TAB PO SCH (05:56)
[2017-06-27] MEDS: oxyCODONE/ACETAMINOPHEN 5 MG/325 MG TAB PO PRN ×2 (05:58→10:40)
[2017-06-27 08:00] VITALS: BP 121/69; PULSE 98; RESP 17; TEMP 98.6; O2SAT 95
--- NOTE | 2017-06-27 08:39 | PD.ORT.PN ---
Subjective Subjective Remarks She is doing better. She had 'a good night last night'. No new complaints of radiating leg pain. No new CP or SOB. She is ready for discharge home with home health . Objective Vitals Vital Signs Date Time Temp Pulse Resp B/P (MAP) Pulse Ox O2 Delivery O2 Flow Rate FiO2 06/26/17 23:34 99.4 79 18 123/67 (85) 94 06/26/17 19:27 98.0 76 17 116/64 (81) 98 06/26/17 18:00 21 06/26/17 16:00 98.0 75 16 112/62 (79) 95 06/26/17 15:12 18 06/26/17 12:30 18 I/O 06/26/17 06/26/17 06/26/17 06/27/17 06/27/17 06/27/17 07:00 15:00 23:00 07:00 15:00 23:00 Intake Total 1333 ml 1080 ml 360 ml Balance 1333 ml 1080 ml 360 ml Intake Oral 360 ml 1080 ml 360 ml IV Total 973 ml # Voids 2 6 2 # Bowel Movements 0 0 0 Result Diagram: 06/26/17 0405 Imaging Last 24 hours Impressions Knee X-Ray 06/25/17 1307 Signed Impressions: Service Date/Time: Sunday, June 25, 2017 14:09 - CONCLUSION: 1. Left total knee replacement with prosthesis in good position. 2. No fracture or dislocation. Angel Irizarry MD Procedures Left total knee arthroplasty Objective Remarks Sitting up in bed In her CPM NAD VSS LLE Dressing c/d/i, no obvious drainage, moderate swelling +motor at, +sens, +nvi Neg homans distal Assessment & Plan Ortho Post Op Day #: 2 Problem List: (1) Osteoarthritis of left knee ICD Codes: M17.12 - Unilateral primary osteoarthritis, left knee Qualifiers: Qualified Codes: M17.12 - Unilateral primary osteoarthritis, left knee Assessment and Plan pod#2 L TKA Ortho stable. Pain better controlled today. Ok for d/c home w h[facility] today after PT. Hold incision dressing changes unless saturated. Oxycodone for pain. ASA 81mg for dvt prophylaxis. PT - WBAT LLE. TKA protocol. Ice to left knee. IS encouraged. F/U in 2 weeks as scheduled. F2F written. Alise Rao Jun 27, 2017 08:39
[2017-06-27] MEDS: PRAVASTATIN SOD 40 MG TAB PO SCH (08:57)
[2017-06-27] MEDS: PARoxetine HCL 20 MG TAB PO SCH (08:57)
[2017-06-27] MEDS: ASPIRIN EC 81 MG TABEC PO SCH (08:57)
[2017-06-27] MEDS: PANTOPRAZOLE SOD 20 MG DELAYED RELEASE TAB PO SCH (08:57)
[2017-06-27] MEDS: MAGNESIUM HYDROXIDE SUSP 30 ML CUP PO SCH (08:57)
== END 2017-06-27 11:34 | disposition home health service (06) ==
LOC: HSDC 06:55 → HSDI 13:08 → INTOOBSV 13:08 → N06B 17:15
PROVIDERS: ADMIT Orthopaedic Surgery Orthopaedic Surgery of the Spine; ATTEND Orthopaedic Surgery Orthopaedic Surgery of the Spine
DX: M17.12 Unilateral primary osteoarthritis, left knee (principal); M17.11 Unilateral primary osteoarthritis, right knee; K21.9 Gastro-esophageal reflux disease without esophagitis; Z96.651 Presence of right artificial knee joint; Z79.82 Long term (current) use of aspirin
CPT/HCPCS: 01402; 27447; 64447; 73560; 85014; 85018; 86850; 86900; 86901; 86920; 94150; 94664; 96374; 97110; 97116; 97150; 97162; 97166; 97535; C1776; G0378; G8987; G8988; J0131; J0690; J1100; J1170; J1580; J2250; J2270; J2370; J2405; J3010; J3370; J7120; J7613; L1830